=== PATIENT | male | born 1995 | race Caucasian/White ===

== ENCOUNTER 2018-07-26 00:39 | Emergency (ER) | payer OTHER ==
[2018-07-26 00:54] VITALS: BP 140/87; PULSE 81; RESP 20; TEMP 99.3
--- NOTE | 2018-07-26 01:41 | ED ---
Lower Extremity Injury HPI - General Chief Complaint: Extremity Injury, Lower Stated Complaint: IHS-ankle injury Time Seen by Provider: 07/26/18 01:28 Source: patient, family, RN notes reviewed Mode of arrival: ambulatory Limitations: no limitations - History of Present Illness Initial Comments: This is a 22-year-old male who presents to the emergency department with chief complaint of right ankle injury. Patient states he was at work, tripped over a rack and a metal bar fell onto his right armenta. Patient reports pain to the medial aspect of his right ankle. He states he is bearing weight and ambulating normally. Complains of only mild pain. States that he was instructed by his employer to be evaluated. Patient denies any other injuries or trauma. Denies recent fevers, chest pain or shortness of breath, abdominal pain, nausea or vomiting, numbness or tingling. - Related Data Home Medications Medication Instructions Recorded Confirmed No Known Home Medications 07/26/18 07/26/18 Allergies Allergy/AdvReac Type Severity Reaction Status Date / Time No Known Allergies Allergy Verified 07/26/18 00:54 Review of Systems ROS Statement: Those systems with pertinent positive or pertinent negative responses have been documented in the HPI. ROS Other: All systems not noted in ROS Statement are negative. Past Medical History Past Medical History: Skin Disorder Additional Past Medical History / Comment(s): 04-26-15 admitted to [facility] with boils /abcess rt upper thigh. 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 History of Any Multi-Drug Resistant Organisms: MRSA Date of last positivie culture/infection: april MDRO Source:: right thigh abcess Past Surgical History: Appendectomy Additional Past Surgical History / Comment(s): 04-26-15 i&d rt upper thigh abcess with cultures.lt arm broke growth plate age 13 sx to repair, broke lt leg age 5. Past Anesthesia/Blood Transfusion Reactions: No Reported Reaction Past Psychological History: ADD/ADHD Smoking Status: Current every day smoker Past Alcohol Use History: None Reported Past Drug Use History: None Reported - Past Family History Father Family Medical History: Unable to Obtain Mother Family Medical History: Asthma Additional Family Medical History / Comment(s): cynthia dz, heart murmur- mom is mrsa carrier General Exam - General Exam Comments Initial Comments: General: Awake and alert, well-developed; in no apparent distress. HEENT: Head atraumatic, normocephalic. Pupils are equal, round and reactive to light. Extraocular movements intact. Oropharynx moist without erythema or exudate. Neck: Supple. Normal ROM. Cardiovascular: Regular rate and rhythm. No murmurs, rubs or gallops. Chest symmetrical. Respiratory: Lungs clear to auscultation bilaterally. No wheezes, rales or rhonchi. Normal respiratory effort with no use of accessory muscles. Musculoskeletal: Normal range of motion of the right ankle. There is mild tenderness on palpation of the medial malleolus. No soft tissue swelling, erythema or ecchymosis is noted. No tenderness on palpation of the right armenta. Sensation is intact. Pedal pulses are 2+ equal and palpable bilaterally. Skin: [place], warm and dry without rashes or lesions. Neurological: Alert and oriented x3. CN II-XII grossly intact. Speech is fluent and answers are appropriate. No focal neuro deficits. Psychiatric: Normal mood and affect. No overt signs of depression or anxiety noted. Limitations: no limitations Course Vital Signs 07/26/18 00:49 Temperature 99.3 F Pulse Rate 81 Respiratory 20 Rate Blood Pressure 140/87 O2 Sat by Pulse 98 Oximetry Medical Decision Making - Medical Decision Making This is a 22-year-old male who presents to the emergency department with chief complaint of right ankle injury. Patient was at work when a metal bar fell onto his right armenta. Patient reports pain to the medial right ankle. He is bearing weight and ambulate. There is mild tenderness without erythema or swelling. X-ray was obtained which revealed no acute abnormalities. Patient likely suffering from contusion. Recommended rest, ice and ibuprofen or Tylenol as needed for pain. Patient is able to return to work at this time. Vitals are stable and he is in no acute distress. He will be discharged home at this time. He is in agreement and voices understanding. All questions were answered. Disposition Clinical Impression: Ankle contusion Disposition: HOME SELF-CARE Condition: Good Instructions: Contusion in Adults (ED) Additional Instructions: Please follow up with primary care provider within 1-2 days. Return to emergency department if symptoms should worsen or any concerns arise. Is patient prescribed a controlled substance at d/c from ED?: No Referrals: John Ellison MD [Primary Care Provider] - 1-2 days Time of Disposition: 02:22
--- NOTE | 2018-07-26 02:03 | XR ---
EXAMINATION TYPE: XR ankle complete RT DATE OF EXAM: 07/26/2018 COMPARISON: NONE HISTORY: Ankle pain TECHNIQUE: 3 views FINDINGS: I see no fracture nor dislocation. Joint spaces are normal. IMPRESSION: Negative right ankle exam.
== END 2018-07-26 04:01 | disposition home or self-care (01) ==
LOC: EC 00:39
DX: S90.01XA Contusion of right ankle, initial encounter (principal); F17.200 Nicotine dependence, unspecified, uncomplicated; W20.8XXA Other cause of strike by thrown, projected or falling object, initial encounter; Y92.69 Other specified industrial and construction area as the place of occurrence of the external cause; Y99.0 Civilian activity done for income or pay
CPT/HCPCS: 82075; 99283

== ENCOUNTER 2019-10-05 16:56 | Emergency (ER) | payer OTHER ==
[2019-10-05 17:03] VITALS: BP 151/88; PULSE 83; RESP 20; TEMP 99
--- NOTE | 2019-10-05 17:31 | ED ---
Recheck HPI - General Chief Complaint: Recheck/Abnormal Lab/Rx Stated Complaint: IHS-Drug test Time Seen by Provider: 10/05/19 17:04 Source: patient Mode of arrival: ambulatory Limitations: no limitations - History of Present Illness Initial Comments: Patient is a 24-year-old male presenting to the ED per IHS request. Patient reports he is here to give a breathalyzer and urine drug screen. Patient reports all the paperwork was completed by ancillary staff. Patient denies any complaints at this time. Patient would like to get his results only. - Related Data Home Medications Medication Instructions Recorded Confirmed No Known Home Medications 07/26/18 07/26/18 Allergies Allergy/AdvReac Type Severity Reaction Status Date / Time No Known Allergies Allergy Verified 10/05/19 17:03 Review of Systems ROS Statement: Those systems with pertinent positive or pertinent negative responses have been documented in the HPI. ROS Other: All systems not noted in ROS Statement are negative. Past Medical History Past Medical History: Skin Disorder Additional Past Medical History / Comment(s): 04-26-[facility] rt upper thigh. 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 Past Anesthesia/Blood Transfusion Reactions: No Reported Reaction Past Psychological History: ADD/ADHD Smoking Status: Current every day smoker Past Alcohol Use History: None Reported Past Drug Use History: None Reported - Past Family History Father Family Medical History: Unable to Obtain Mother Family Medical History: Asthma Additional Family Medical History / Comment(s): cynthia dz, heart murmur- mom is mrsa carrier General Exam Limitations: no limitations General appearance: alert, in no apparent distress Head exam: Present: atraumatic, normocephalic, normal inspection Eye exam: Present: normal appearance ENT exam: Present: normal exam, mucous membranes moist Neck exam: Present: normal inspection Respiratory exam: Present: normal lung sounds bilaterally Cardiovascular Exam: Present: regular rate, normal rhythm, normal heart sounds Extremities exam: Present: normal inspection Back exam: Present: normal inspection Neurological exam: Present: alert, oriented X3 Psychiatric exam: Present: normal affect, normal mood Skin exam: Present: warm, dry, intact, normal color Course Vital Signs 10/05/19 17:01 Temperature 99 F Pulse Rate 83 Respiratory 20 Rate Blood Pressure 151/88 O2 Sat by Pulse 99 Oximetry Medical Decision Making - Medical Decision Making Patient is a 24-year-old male presenting to emergency Department with a chief complaint of IHS request. Patient alert he completed all the breathalyzer and urine assess it is. Patient states states that all the work was completed with ancillary staff. Patient has no complaints at this time and would like to leave. Disposition Clinical Impression: Encounter for drug screening Disposition: HOME SELF-CARE Condition: Stable Is patient prescribed a controlled substance at d/c from ED?: No Referrals: John Ellison MD [Primary Care Provider] - 1-2 days Time of Disposition: 00:39
== END 2019-10-05 17:36 | disposition home or self-care (01) ==
LOC: EC 16:56
DX: Z02.83 Encounter for blood-alcohol and blood-drug test (principal); F17.200 Nicotine dependence, unspecified, uncomplicated
CPT/HCPCS: 99282

== ENCOUNTER 2021-03-26 06:37 | Emergency (ER) | payer BC, OTHER ==
[2021-03-26 06:59] VITALS: BP 125/76; PULSE 63; RESP 19; TEMP 98
[2021-03-26] MEDS ORDERED: HYDROmorphone 1 MG/ML 1 ML SYRINGE IM STA (07:08)
--- NOTE | 2021-03-26 07:45 | XR ---
EXAMINATION TYPE: XR lumbar spine 2 or 3V DATE OF EXAM: 03/26/2021 CLINICAL HISTORY: Lower back pain from fall from bed TECHNIQUE: Frontal, lateral, and oblique images of the lumbar spine are obtained. COMPARISON: None FINDINGS: There are 5 nonrib-bearing lumbar-type vertebral bodies. Straightening of the normal lumbar lordosis likely due to positioning or muscle spasm. No loss of vertebral body height or intervertebr al disc space. No spondylolisthesis. Facets are in alignment. IMPRESSION: 1. Straightening of the normal lumbar lordosis likely due to positioning or muscle spasm. 2. No loss of vertebral body height to suggest acute compression fracture. 3. No spondylolisthesis.
--- NOTE | 2021-03-26 07:46 | ED ---
General Adult HPI - General Chief complaint: Back Pain/Injury Stated complaint: Back Pain Time Seen by Provider: 03/26/21 07:01 Source: patient, family, RN notes reviewed Mode of arrival: ambulatory Limitations: no limitations - History of Present Illness Initial comments: This a 25-year-old male presents emergency from chief complaint of low back pain. Patient states that he was going to lay back onto his bed and states today he misses bed hitting the corner of the nightstand. Patient complains that he hit in his upper back on the ribs states he twisted same time causing pain to his low back denies any bowel, bladder incontinence or retention or saddle anesthesias. Patient states pain is worse with movement he has since no pain at rest. Denies any hematuria no abdominal pain no other complaints. - Related Data Previous Rx's Medication Instructions Recorded Cyclobenzaprine [Flexeril] 10 mg PO TID PRN #15 tab 03/26/21 Ibuprofen [Motrin] 600 mg PO Q8HR PRN #20 tab 03/26/21 Allergies Allergy/AdvReac Type Severity Reaction Status Date / Time No Known Allergies Allergy Verified 03/26/21 06:58 Review of Systems ROS Statement: Those systems with pertinent positive or pertinent negative responses have been documented in the HPI. ROS Other: All systems not noted in ROS Statement are negative. Past Medical History Past Medical History: Skin Disorder Additional Past Medical History / Comment(s): 04-26-15 admitted to [facility] with boils/abcess rt upper thigh. 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 Past Anesthesia/Blood Transfusion Reactions: No Reported Reaction Past Psychological History: ADD/ADHD Smoking Status: Former smoker, Vaper Past Alcohol Use History: Occasional Past Drug Use History: Marijuana - Past Family History Father Family Medical History: Unable to Obtain Mother Family Medical History: Asthma Additional Family Medical History / Comment(s): dariers dz, heart murmur- mom is mrsa carrier General Exam General appearance: alert, in no apparent distress Head exam: Present: atraumatic, normocephalic, normal inspection Eye exam: Present: normal appearance, PERRL, EOMI. Absent: scleral icterus, conjunctival injection, periorbital swelling Neck exam: Present: normal inspection, full ROM. Absent: tenderness, meningismus, lymphadenopathy Respiratory exam: Present: normal lung sounds bilaterally. Absent: respiratory distress, wheezes, rales, rhonchi, stridor Cardiovascular Exam: Present: regular rate, normal rhythm, normal heart sounds. Absent: systolic murmur, diastolic murmur, rubs, gallop, clicks GI/Abdominal exam: Present: soft, normal bowel sounds. Absent: distended, tenderness, guarding, rebound, rigid Extremities exam: Present: normal inspection, full ROM, normal capillary refill. Absent: tenderness, pedal edema, joint swelling, calf tenderness Back exam: Present: normal inspection, full ROM, tenderness (Right lower lumbar), paraspinal tenderness. Absent: CVA tenderness (R), CVA tenderness (L), vertebral tenderness Neurological exam: Present: alert, oriented X3, CN II-XII intact, reflexes normal. Absent: motor sensory deficit Skin exam: Present: warm, dry, intact, normal color. Absent: rash Course Vital Signs 03/26/21 06:53 Temperature 98.0 F Pulse Rate 63 Respiratory 19 Rate Blood Pressure 125/76 O2 Sat by Pulse 98 Oximetry Medical Decision Making - Medical Decision Making X-ray reviewed there are no acute fractures. Patient has mild straightening of normal lumbar region. Patient improved after IM pain medications. Patient has no red flag symptoms will be discharged in stable condition. Disposition Clinical Impression: Lumbar back pain Disposition: HOME SELF-CARE Condition: Stable Instructions (If sedation given, give patient instructions): Acute Low Back Pain (ED) Additional Instructions: Please return to the Emergency Department if symptoms worsen or any other concerns. Prescriptions: Cyclobenzaprine [Flexeril] 10 mg PO TID PRN #15 tab PRN Reason: Muscle Spasm Ibuprofen [Motrin] 600 mg PO Q8HR PRN #20 tab PRN Reason: Pain Is patient prescribed a controlled substance at d/c from ED?: No Referrals: John Ellison MD [Primary Care Provider] - 1-2 days Time of Disposition: 07:51
[2021-03-26] MEDS ORDERED: ACET/COD 300 MG/30 MG STARTER PACK 6 TAB BTL PO STA (07:49)
== END 2021-03-26 08:00 | disposition home or self-care (01) ==
LOC: EC 06:37
DX: M54.5 Low back pain (principal); F12.90 Cannabis use, unspecified, uncomplicated; Z90.89 Acquired absence of other organs; Z90.49 Acquired absence of other specified parts of digestive tract; Z87.891 Personal history of nicotine dependence; W22.03XA Walked into furniture, initial encounter
CPT/HCPCS: 72100; 99283; 96372; J1170

== ENCOUNTER 2021-06-08 11:48 | Emergency (ER) | payer BC ==
[2021-06-08 12:00] VITALS: BP 127/67; PULSE 86; TEMP 98
[2021-06-08 12:15] VITALS: RESP 16
--- NOTE | 2021-06-08 12:40 | ED ---
URI HPI - General Chief Complaint: Upper Respiratory Infection Stated Complaint: congestion Time Seen by Provider: 06/08/21 12:00 Source: patient, RN notes reviewed Mode of arrival: ambulatory Limitations: no limitations - History of Present Illness Initial Comments: 25-year-old male presents emergency from chief complaint of fever cough congestion bodyaches. Patient states symptoms started yesterday. He took some [id number] cough and cold medication. No sick contacts. Patient states he has nasal congestion, chest congestion. He states shortness of breath is very mild no chest pain no neck pain or neck stiffness. Patient has no significant past history. - Related Data Previous Rx's Medication Instructions Recorded Cyclobenzaprine [Flexeril] 10 mg PO TID PRN #15 tab 03/26/21 Ibuprofen [Motrin] 600 mg PO Q8HR PRN #20 tab 03/26/21 Pseudoephedrine 12Hr [Sudafed 12 120 mg PO Q12H #30 tablet.er 06/08/21 Hour] Allergies Allergy/AdvReac Type Severity Reaction Status Date / Time Fish Containing Products Allergy Rash/Hives Verified 06/08/21 12:00 [Fish] Review of Systems ROS Statement: Those systems with pertinent positive or pertinent negative responses have been documented in the HPI. ROS Other: All systems not noted in ROS Statement are negative. Past Medical History Past Medical History: Skin Disorder Additional Past Medical History / Comment(s): 04-26-15 admitted to [facility] with boils/abcess rt upper thigh. other hx: per old chart- dardeanna disease neck scalp,axilla, fx lt leg age 5. History of Any Multi-Drug Resistant Organisms: MRSA Date of last positivie culture/infection: april MDRO Source:: right thigh abcess Past Surgical History: Appendectomy, Cholecystectomy Additional Past Surgical History / Comment(s): 04-26-15 i&d rt upper thigh abcess with cultures.lt arm broke growth plate age 13 sx to repair, broke lt leg age 5. Past Anesthesia/Blood Transfusion Reactions: No Reported Reaction Past Psychological History: ADD/ADHD Smoking Status: Former smoker, Vaper Past Alcohol Use History: Occasional Past Drug Use History: Marijuana - Past Family History Father Family Medical History: Unable to Obtain Mother Family Medical History: Asthma Additional Family Medical History / Comment(s): dariers dz, heart murmur- mom is mrsa carrier General Exam Limitations: no limitations Head exam: Present: atraumatic, normocephalic, normal inspection Eye exam: Present: normal appearance, PERRL, EOMI. Absent: scleral icterus, conjunctival injection, periorbital swelling ENT exam: Present: normal exam, normal oropharynx, mucous membranes moist Neck exam: Present: normal inspection, full ROM. Absent: tenderness, meningismus, lymphadenopathy Respiratory exam: Present: normal lung sounds bilaterally. Absent: respiratory distress, wheezes, rales, rhonchi, stridor Cardiovascular Exam: Present: regular rate, normal rhythm, normal heart sounds. Absent: systolic murmur, diastolic murmur, rubs, gallop, clicks GI/Abdominal exam: Present: soft, normal bowel sounds. Absent: distended, tenderness, guarding, rebound, rigid Course Vital Signs 06/08/21 06/08/21 11:56 12:12 Temperature 98.0 F Pulse Rate 86 Respiratory 22 16 Rate Blood Pressure 127/67 O2 Sat by Pulse 98 Oximetry Medical Decision Making - Medical Decision Making COVID-19 is negative x-ray does not show any definite evidence of pneumonia will be discharged in stable condition return parameters were discussed. - Lab Data Lab Results 06/08/21 Range/Units 12:15 Coronavirus (PCR) Not Detected (Not Detectd) Disposition Clinical Impression: Acute upper respiratory infection Disposition: HOME SELF-CARE Condition: Stable Instructions (If sedation given, give patient instructions): Upper Respiratory Infection (ED) Additional Instructions: Please return to the Emergency Department if symptoms worsen or any other kristal rns. Prescriptions: Pseudoephedrine 12Hr [Sudafed 12 Hour] 120 mg PO Q12H #30 tablet.er Is patient prescribed a controlled substance at d/c from ED?: No Referrals: John Ellison MD [Primary Care Provider] - 1-2 days Time of Disposition: 14:15
--- NOTE | 2021-06-08 14:19 | XR ---
EXAMINATION TYPE: XR chest 2V DATE OF EXAM: 06/08/2021 COMPARISON: NONE HISTORY: 25 years Male. STUDY INDICATION GIVEN: cough. TECHNIQUE: Frontal PA lateral chest radiograph IMPRESSION: No focal airspace disease, pneumothorax or pleural effusion. Very small hyperdense nodules in the right thorax may represent remote granulomatous infection versus vessel en face. The heart and mediastinum are normal in silhouette. Osseous structures are within normal limit.
== END 2021-06-08 14:25 | disposition home or self-care (01) ==
LOC: EC 11:48
DX: J06.9 Acute upper respiratory infection, unspecified (principal); F17.290 Nicotine dependence, other tobacco product, uncomplicated; Z91.013 Allergy to seafood; Z20.822 Contact with and (suspected) exposure to COVID-19
CPT/HCPCS: 71046; 87635; 99285

== ENCOUNTER 2022-04-15 12:17 | Emergency (ER) | payer BC, OTHER ==
[2022-04-15 14:40] VITALS: BP 137/85; PULSE 85; RESP 20; TEMP 98.6
--- NOTE | 2022-04-15 18:18 | ED ---
URI HPI - General Chief Complaint: Upper Respiratory Infection Stated Complaint: sinus & skin problem Time Seen by Provider: 04/15/22 18:03 Source: patient, RN notes reviewed Mode of arrival: ambulatory Limitations: no limitations - History of Present Illness Initial Comments: Patient presents to the emergency department complaining of a runny nose, sinus congestion, sinus headache, and increased irritation of his chronic scalp rash. Patient has a skin condition which is chronic states it seems to be . He denies any fever. Mild cough with no shortness of breath. No purulent nasal drainage. No difficulty swallowing. No neck stiffness. no fever or chills, no changes in vision or hearing, no sore throat or difficulty with speech, no neck pain, no chest pain or shortness of breath, no abdominal pain, no nausea or vomiting, no changes in urination or bowel movements, no numbness or tingling, no extremity pain - Related Data Previous Rx's Medication Instructions Recorded Cyclobenzaprine [Flexeril] 10 mg PO TID PRN #15 tab 03/26/21 Ibuprofen [Motrin] 600 mg PO Q8HR PRN #20 tab 03/26/21 Pseudoephedrine 12Hr [Sudafed 12 120 mg PO Q12H #30 tablet.er 06/08/21 Hour] Allergies Allergy/AdvReac Type Severity Reaction Status Date / Time Fish Containing Products Allergy Rash/Hives Verified 04/15/22 14:40 [Fish] Review of Systems ROS Statement: Those systems with pertinent positive or pertinent negative responses have been documented in the HPI. ROS Other: All systems not noted in ROS Statement are negative. Past Medical History Past Medical History: Skin Disorder Additional Past Medical History / Comment(s): 04-26-15 admitted to [facility] with boils/abcess rt upper thigh. 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 Past Anesthesia/Blood Transfusion Reactions: No Reported Reaction Past Psychological History: ADD/ADHD Smoking Status: Light tobacco smoker, Vaper Past Alcohol Use History: Occasional Past Drug Use History: Marijuana - Past Family History Father Family Medical History: Unable to Obtain Mother Family Medical History: Asthma Additional Family Medical History / Comment(s): cynthia dz, heart murmur- mom is mrsa carrier General Exam - General Exam Comments Initial Comments: Healthy-appearing 26-year-old male no acute distress. Patient does not appear to be ill or toxic. Vital signs reviewed, patient stable, afebrile. Adequate peripheral perfusion, moist mucous members Limitations: no limitations General appearance: alert, in no apparent distress Head exam: Present: atraumatic, normocephalic, normal inspection Eye exam: Present: normal appearance, PERRL, EOMI. Absent: scleral icterus, conjunctival injection, periorbital swelling ENT exam: Present: normal exam, normal oropharynx, mucous membranes moist, TM's normal bilaterally, normal external ear exam, other (Clinical runny nose. This tenderness. No evidence of purulent drainage. Airways patent.). Absent: mucous membranes dry Expanded Ear exam: Present: normal external inspection Mouth exam: Present: normal external inspection. Absent: drooling, trismus, muffled voice, tongue normal, tongue elevation, laceration Teeth exam: Present: normal inspection. Absent: dental caries, gingival enlargement Throat exam: normal inspection. negative: tonsillar erythema, tonsillomegaly, tonsillar exudate, R peritonsillar mass, L peritonsillar mass Neck exam: Present: normal inspection, full ROM. Absent: tenderness, meni ngismus, lymphadenopathy Respiratory exam: Present: normal lung sounds bilaterally. Absent: respiratory distress, wheezes, rales, rhonchi, stridor, decreased breath sounds, prolonged expiratory Cardiovascular Exam: Present: regular rate, normal rhythm, normal heart sounds. Absent: systolic murmur, diastolic murmur, rubs, gallop, clicks GI/Abdominal exam: Present: soft, normal bowel sounds. Absent: distended, tenderness, guarding, rebound, rigid Extremities exam: Present: normal inspection, full ROM, normal capillary refill. Absent: tenderness, pedal edema, joint swelling, calf tenderness Back exam: Present: normal inspection Neurological exam: Present: alert, oriented X3, CN II-XII intact Psychiatric exam: Present: normal affect, normal mood Skin exam: Present: warm, dry, intact, normal color, rash (Patient has hypertrophic, scaling-appearing rash which involves his retroauricular areas of scalp. No evidence of secondary infection. No evidence of purulent drainage. Patient has dry flaking areas to his scalp.) Course Vital Signs 04/15/22 14:32 Temperature 98.6 F Pulse Rate 85 Respiratory 20 Rate Blood Pressure 137/85 O2 Sat by Pulse 99 Oximetry Medical Decision Making - Medical Decision Making Patient presents with symptoms most consistent with a common cold. Patient has a chronic skin condition with no evidence of secondary infection. I did culture an area on the patient's scalp however there is no purulent drainage. Likely this culture will not show anything other than skin alber. I see no indication for treating with antibiotics. Patient will be treated conservatively with [id number] antipyretics, fluids, rest. COVID-19 test was negative. Patient was told to return to the ER for any signs or symptoms worsen. Told to return immediately if any other problems arise. All questions answered. Treatment plan discussed. Patient in agreement Every effort has been made to ensure accuracy of this dictation. However, due to the limitations of electronic medical records and dictation devices, errors in charting still occur. [employer] Representative Dr. Stephens - Lab Data Lab Results 04/15/22 Range/Units 14:43 Coronavirus (PCR) Not Detected (Not Detectd) Disposition Clinical Impression: Viral URI, Hypertrophic condition of skin Disposition: HOME SELF-CARE Condition: Good Instructions (If sedation given, give patient instructions): Upper Respiratory Infection (ED) Additional Instructions: Use [id number] acetaminophen and/or ibuprofen for symptomatic control. Wound culture will be pending. With her regular physician.Follow-up with your regular physician as directed. Return to the ER immediately if any symptoms worsen, new symptoms arise, or any other problems develop. Is patient prescribed a controlled substance at d/c from ED?: No Referrals: John Ellison MD [Primary Care Provider] - 04/21/22 Time of Disposition: 18:17
== END 2022-04-15 18:30 | disposition home or self-care (01) ==
LOC: EC 12:17
DX: J06.9 Acute upper respiratory infection, unspecified (principal); L91.9 Hypertrophic disorder of the skin, unspecified; Z20.822 Contact with and (suspected) exposure to COVID-19; F17.290 Nicotine dependence, other tobacco product, uncomplicated; F12.90 Cannabis use, unspecified, uncomplicated
CPT/HCPCS: 87070; 87205; 87635; 99284